=== PATIENT | male | born 1940 | race Caucasian/White ===

== ENCOUNTER 2020-04-01 13:50 | Inpatient (IN) | payer MEDICARE, BC ==
[~2020-04-01] VITALS: Ht 180.3 cm; Wt 103.0 kg
--- NOTE | 2020-04-01 14:16 | NUR ---
Pt's Son NEVAEH Gandhi phoned and left his cell phone where he can be reached - [phone]. Scar also reports the patient has a history of Cognitive Impairment and may have difficulty understanding or verbalizing everything.
[2020-04-01 14:44] LABS: BASOPHILS # (AUTO) 0.1 X10'3 (0-0.2); BASOPHILS % (AUTO) 0.9 % (0-1); EOSINOPHILS # (AUTO) 0.2 X10'3 (0-0.9); EOSINOPHILS % (AUTO) 2.8 % (0-6); LYMPHOCYTES # (AUTO) 0.9 X10'3 (1.1-4.8); LYMPHOCYTES % (AUTO) 13.8 % (21-51); MEAN CORPUSCULAR HEMOGLOBIN 31.7 PG (27.0-31.0); MEAN CORPUSCULAR HGB CONC 33.3 g/dL (33.0-36.5); MEAN CORPUSCULAR VOLUME 95.2 FL (78-98); MEAN PLATELET VOLUME 7.5 FL (7.4-10.4); MONOCYTES # (AUTO) 0.9 X10'3 (0-0.9); MONOCYTES % (AUTO) 15.1 % (2-12); NEUTROPHILS # (AUTO) 4.2 X10'3 (1.8-7.7); NEUTROPHILS % (AUTO) 67.4 % (42-75); PLATELET COUNT 170 X10'3 (140-440); RED BLOOD COUNT 3.47 X10'6 (4.70-6.10); RED CELL DISTRIBUTION WIDTH 16.3 % (11.5-14.5); WHITE BLOOD COUNT 6.2 X10'3 (4.5-11.0)
[2020-04-01 15:06] LABS: ALANINE AMINOTRANSFERASE 20 U/L (12-78); ALBUMIN 3.3 G/DL (3.4-5.0); ALBUMIN/GLOBULIN RATIO 0.8 (1.1-1.5); ALKALINE PHOSPHATASE 74 IU/L (46-116); ANION GAP 6 (8-16); ASPARTATE AMINO TRANSFERASE 17 U/L (10-37); BILIRUBIN,TOTAL 0.6 MG/DL (0.1-1.0); BLOOD UREA NITROGEN 55 MG/DL (7-18); BUN/CREATININE RATIO 20.7 (5.4-32.0); CALCIUM 8.5 MG/DL (8.5-10.1); CHLORIDE 104 MMOL/L (99-107); CREATININE 2.66 MG/DL (0.60-1.10); GLUCOSE 119 MG/DL (70-104); POTASSIUM 4.2 MMOL/L (3.5-5.1); SODIUM 140 MMOL/L (135-145); TOTAL CARBON DIOXIDE 29.8 MMOL/L (24-32); TOTAL PROTEIN 7.6 G/DL (6.4-8.2); eGFR 23 ML/MIN
[2020-04-01] MEDS ORDERED: furosemide 10 MG/1 ML 10ml inj IV ONE (16:15)
[2020-04-01] MEDS ORDERED: methylPREDNISolone sod succ 125mg/2ml vial IV ONE (17:00)
[2020-04-01 17:02] LABS: PARTIAL THROMBOPLASTIN TIME 28 SECONDS (22-32)
[2020-04-01] MEDS ORDERED: magnesium Cl slow-release 64mg tablet PO PRN (17:10)
[2020-04-01] MEDS ORDERED: ipratropium/albuterol 3ml nebule NEB PRN (17:10)
[2020-04-01] MEDS ORDERED: bisacodyl 10mg suppository rectal RC PRN (17:10)
[2020-04-01] MEDS ORDERED: magnesium hydroxide 30ml (MOM) UD suspension PO PRN (17:10)
[2020-04-01] MEDS ORDERED: ondansetron/PF 4mg/2ml inj IV PRN (17:10)
[2020-04-01] MEDS ORDERED: HYDROcodone/acetaminophen 10/325mg tab PO PRN (17:10)
[2020-04-01] MEDS ORDERED: magnesium 4gm in 100ml NS 100 ML IV PRN (17:10)
[2020-04-01] MEDS ORDERED: metoclopramide 5 mg/ml inj IV PRN (17:10)
[2020-04-01] MEDS ORDERED: HYDROcodone/acetaminophen 5mg/325mg tablet PO PRN (17:10)
[2020-04-01] MEDS ORDERED: magnesium 2GM in 50ml NS 50 ML IV PRN (17:10)
[2020-04-01] MEDS ORDERED: acetaminophen 325mg tablet PO PRN ×2 (17:10)
[2020-04-01] MEDS ORDERED: potassium Cl 20 mEq SR tablet PO PRN ×2 (17:10)
[2020-04-01] MEDS ORDERED: potassium CL 10mEq/100ml bag 100 ML IV PRN ×2 (17:10)
[2020-04-01] MEDS ORDERED: mag hydrox/Alum hydrox/simeth 30ml oral suspension PO PRN (17:10)
[2020-04-01] MEDS ORDERED: CARV3.122 PO (17:22)
[2020-04-01] MEDS ORDERED: OMEG-161 PO (17:22)
[2020-04-01] MEDS ORDERED: FURO20TA4 PO (17:22)
[2020-04-01] MEDS ORDERED: CHOL100046 PO (17:22)
[2020-04-01] MEDS ORDERED: VITA400C19 PO (17:22)
[2020-04-01] MEDS ORDERED: ASPI-611 PO (17:22)
[2020-04-01] MEDS ORDERED: GABA300C PO (17:22)
[2020-04-01] MEDS ORDERED: TRAM50TA2 PO (17:22)
[2020-04-01] MEDS ORDERED: SITA25TA3 PO (17:22)
[2020-04-01] MEDS ORDERED: FERGLU300T PO (17:22)
[2020-04-01] MEDS ORDERED: IPRA3AMP31 NEB (17:22)
[2020-04-01] MEDS ORDERED: ATOR40TA72 PO (17:22)
[2020-04-01] MEDS ORDERED: MULT-1074 PO (17:22)
[2020-04-01] MEDS ORDERED: CALC0.2535 PO (17:22)
[2020-04-01] MEDS ORDERED: FLO0.4C PO (17:22)
[2020-04-01] MEDS ORDERED: WARF2.5T82 PO (17:22)
[2020-04-01] MEDS ORDERED: ASCO-134 PO (17:22)
[2020-04-01] MEDS ORDERED: ACET-890 PO (17:22)
[2020-04-01] MEDS ORDERED: CLON0.5T4 PO (17:22)
[2020-04-01] MEDS ORDERED: INSU100V9 SQ (17:22)
[2020-04-01] MEDS ORDERED: XAL0.005OS EACHEYE (17:22)
[2020-04-01] MEDS ORDERED: clonazePAM 0.5mg tablet PO PRN (17:35)
[2020-04-01] MEDS ORDERED: traMADol 50MG tablet PO PRN (17:35)
[2020-04-01] MEDS: CefTRIAXone/D5W-Rocephin 1gm 50 ML IV SCH (18:32)
--- NOTE | 2020-04-01 18:34 | NUR ---
call placed to [facility] regarding approval for covid swab - she will recontact the lab
[2020-04-01] MEDS: predniSONE 20 mg tablet PO SCH (18:43)
[2020-04-01 19:01] LABS: HEMOGLOBIN A1C 6.6 % (4.5-6.2)
[2020-04-01 19:17] LABS: PHOSPHORUS 4.6 MG/DL (2.3-4.5)
[2020-04-01 19:40] VITALS: BP 139/80
[2020-04-01] MEDS: ipratropium/albuterol 3ml nebule NEB SCH ×2 (19:56→23:28)
[2020-04-01] MEDS: K and/or MAG REPLACEMENT MC SCH (20:00)
[2020-04-01] MEDS: insulin glargine (Lantus) pen - multi-dose SQ SCH (21:00)
[2020-04-01] MEDS: latanoprost 0.005% 2.5ml ophthalmic drops EACHEYE SCH (21:00)
[2020-04-01] MEDS ORDERED: warfarin 3mg tablet PO ONE (21:00)
[2020-04-01] MEDS: furosemide 40mg/4ml inj IV SCH (21:14)
[2020-04-01] MEDS: methylPREDNISolone sod succ 125mg/2ml vial IV SCH (21:15)
[2020-04-01] MEDS: gabapentin 300mg capsule PO SCH (21:19)
[2020-04-01] MEDS: carVEDilol 3.125mg tablet PO SCH (21:19)
[2020-04-01] MEDS: temazepam 15mg capsule PO PRN (21:30)
[2020-04-01 23:31] VITALS: BP 134/68
[2020-04-02] MEDS: methylPREDNISolone sod succ 125mg/2ml vial IV SCH ×3 (01:39→19:28)
[2020-04-02 02:44] VITALS: BP 106/64
[2020-04-02 03:21] LABS: BASOPHILS % (AUTO) 0.2 % (0-1); EOSINOPHILS % (AUTO) 0 % (0-6); HEMATOCRIT 33.8 % (42.0-52.0); HEMOGLOBIN 11.1 g/dl (14.0-17.9); LYMPHOCYTES # (AUTO) 0.2 X10'3 (1.1-4.8); LYMPHOCYTES % (AUTO) 3.6 % (21-51); MEAN CORPUSCULAR HEMOGLOBIN 30.9 PG (27.0-31.0); MEAN CORPUSCULAR HGB CONC 32.7 g/dL (33.0-36.5); MEAN CORPUSCULAR VOLUME 94.5 FL (78-98); MEAN PLATELET VOLUME 7.9 FL (7.4-10.4); MONOCYTES % (AUTO) 0.9 % (2-12); NEUTROPHILS # (AUTO) 4.2 X10'3 (1.8-7.7); NEUTROPHILS % (AUTO) 95.3 % (42-75); PLATELET COUNT 157 X10'3 (140-440); RED BLOOD COUNT 3.58 X10'6 (4.70-6.10); RED CELL DISTRIBUTION WIDTH 16.5 % (11.5-14.5); WHITE BLOOD COUNT 4.4 X10'3 (4.5-11.0)
[2020-04-02 03:39] LABS: ALANINE AMINOTRANSFERASE 20 U/L (12-78); ALBUMIN 3.1 G/DL (3.4-5.0); ALBUMIN/GLOBULIN RATIO 0.7 (1.1-1.5); ALKALINE PHOSPHATASE 69 IU/L (46-116); ANION GAP 8 (8-16); ASPARTATE AMINO TRANSFERASE 14 U/L (10-37); BILIRUBIN,TOTAL 0.6 MG/DL (0.1-1.0); BLOOD UREA NITROGEN 56 MG/DL (7-18); BUN/CREATININE RATIO 21.1 (5.4-32.0); CALCIUM 8.3 MG/DL (8.5-10.1); CHLORIDE 101 MMOL/L (99-107); CREATININE 2.65 MG/DL (0.60-1.10); GLUCOSE 189 MG/DL (70-104); SODIUM 137 MMOL/L (135-145); TOTAL CARBON DIOXIDE 27.6 MMOL/L (24-32); TOTAL PROTEIN 7.5 G/DL (6.4-8.2); eGFR 23 ML/MIN
[2020-04-02 03:41] LABS: CHOL/HDL RATIO 1.8 (0.00-4.99); CHOLESTEROL 79 MG/DL (0-200); HDL CHOLESTEROL 43 MG/DL (35-60); LDL CHOLESTEROL 34 MG/DL (50-100); MAGNESIUM 2.3 MG/DL (1.5-2.4); TRIGLYCERIDES 19 MG/DL (20-135)
--- NOTE | 2020-04-02 06:12 | NUR ---
Problems reprioritized. Patient report given, questions answered & plan of care reviewed with CLARE Braga.
--- NOTE | 2020-04-02 06:19 | NUR ---
Patient in room PCU 3015. I have received report from CLARE Nicholson and had the opportunity to ask questions and assume patient care.
[2020-04-02 07:00] VITALS: BP 140/76
[2020-04-02] MEDS ORDERED: enoxaparin 40mg/0.4ml syringe SUBCUT SCH (08:00)
[2020-04-02] MEDS: CefTRIAXone/D5W-Rocephin 1gm 50 ML IV SCH (08:00)
[2020-04-02] MEDS: linagliptin 5mg tablet PO SCH (08:00)
[2020-04-02] MEDS: predniSONE 20 mg tablet PO SCH (08:00)
[2020-04-02] MEDS: tamsulosin 0.4mg capsule PO SCH (08:00)
[2020-04-02] MEDS: K and/or MAG REPLACEMENT MC SCH ×2 (08:00→20:00)
[2020-04-02] MEDS: carVEDilol 3.125mg tablet PO SCH ×2 (08:00→19:28)
[2020-04-02] MEDS: furosemide 40mg/4ml inj IV SCH ×2 (08:00→19:28)
[2020-04-02] MEDS: aspirin 81mg tablet.DR PO SCH (08:00)
[2020-04-02] MEDS: ipratropium/albuterol 3ml nebule NEB SCH ×5 (08:18→23:25)
[2020-04-02 11:00] VITALS: BP 114/35
--- NOTE | 2020-04-02 13:07 | NUR ---
PAGER ID: [phone] MESSAGE: [id number]: Melvin Smith: Pt does not have humalog ordered, pt has met to give. -eber [phone]
[2020-04-02] MEDS: insulin Lispro (HumaLOG) vial - multi-dose SQ SCH ×2 (13:40→19:30)
[2020-04-02 15:00] VITALS: BP 146/59
[2020-04-02 18:00] VITALS: BP 129/54
--- NOTE | 2020-04-02 18:10 | NUR ---
Problems reprioritized. Patient report given, questions answered & plan of care reviewed with CLARE Rivera.
--- NOTE | 2020-04-02 18:15 | NUR ---
Patient in room PCU 3015. I have received report from Maria Luz SPARKS and had the opportunity to ask questions and assume patient care.
[2020-04-02] MEDS ORDERED: warfarin 3mg tablet PO ONE (21:00)
[2020-04-02] MEDS: latanoprost 0.005% 2.5ml ophthalmic drops EACHEYE SCH (21:13)
[2020-04-02] MEDS: insulin glargine (Lantus) pen - multi-dose SQ SCH (21:21)
[2020-04-02] MEDS: gabapentin 300mg capsule PO SCH (21:22)
[2020-04-02 22:00] VITALS: BP 141/43
[2020-04-03] MEDS: temazepam 15mg capsule PO PRN (01:06)
[2020-04-03 02:00] VITALS: BP 116/58
[2020-04-03] MEDS: methylPREDNISolone sod succ 125mg/2ml vial IV SCH ×2 (02:08→07:32)
--- NOTE | 2020-04-03 04:56 | NUR ---
PATIENT IS REFUSING TELE MONITORING. EDUCATED PATIENT ON THE MONITOR AND CONTINUES TO REFUSE. PT IS TO BE DC IN DURING THE DAY. PATIENT VS STABLE. NO ACUTE DISTRESS. WILL CONTINUE TO MONITOR.
[2020-04-03 05:48] LABS: BASOPHILS % (AUTO) 0.1 % (0-1); EOSINOPHILS % (AUTO) 0 % (0-6); HEMATOCRIT 30.2 % (42.0-52.0); HEMOGLOBIN 10.1 g/dl (14.0-17.9); LYMPHOCYTES # (AUTO) 0.3 X10'3 (1.1-4.8); LYMPHOCYTES % (AUTO) 2.4 % (21-51); MEAN CORPUSCULAR HGB CONC 33.4 g/dL (33.0-36.5); MEAN CORPUSCULAR VOLUME 92.9 FL (78-98); MONOCYTES # (AUTO) 0.3 X10'3 (0-0.9); MONOCYTES % (AUTO) 2.4 % (2-12); NEUTROPHILS # (AUTO) 12.7 X10'3 (1.8-7.7); NEUTROPHILS % (AUTO) 95.1 % (42-75); PLATELET COUNT 160 X10'3 (140-440); RED BLOOD COUNT 3.25 X10'6 (4.70-6.10); RED CELL DISTRIBUTION WIDTH 16.3 % (11.5-14.5); WHITE BLOOD COUNT 13.3 X10'3 (4.5-11.0)
--- NOTE | 2020-04-03 06:16 | NUR ---
Problems reprioritized. Patient report given, questions answered & plan of care reviewed with Madie SPARKS.
[2020-04-03 06:25] LABS: ALANINE AMINOTRANSFERASE 17 U/L (12-78); ALBUMIN/GLOBULIN RATIO 0.8 (1.1-1.5); ALKALINE PHOSPHATASE 57 IU/L (46-116); ANION GAP 12 (8-16); ASPARTATE AMINO TRANSFERASE 20 U/L (10-37); BILIRUBIN,TOTAL 0.4 MG/DL (0.1-1.0); BLOOD UREA NITROGEN 77 MG/DL (7-18); BUN/CREATININE RATIO 25.4 (5.4-32.0); CALCIUM 8.4 MG/DL (8.5-10.1); CHLORIDE 99 MMOL/L (99-107); CREATININE 3.03 MG/DL (0.60-1.10); GLUCOSE 174 MG/DL (70-104); MAGNESIUM 2.2 MG/DL (1.5-2.4); SODIUM 135 MMOL/L (135-145); TOTAL CARBON DIOXIDE 24.5 MMOL/L (24-32); TOTAL PROTEIN 6.8 G/DL (6.4-8.2); eGFR 20 ML/MIN
--- NOTE | 2020-04-03 06:41 | NUR ---
Patient in room PCU 3015. I have received report from Miguel SPARKS and had the opportunity to ask questions and assume patient care.
[2020-04-03 07:00] VITALS: BP 113/54
[2020-04-03] MEDS: ipratropium/albuterol 3ml nebule NEB SCH ×2 (07:04→11:20)
[2020-04-03] MEDS: linagliptin 5mg tablet PO SCH (07:32)
[2020-04-03] MEDS: aspirin 81mg tablet.DR PO SCH (07:32)
[2020-04-03] MEDS: furosemide 40mg/4ml inj IV SCH (07:32)
[2020-04-03] MEDS: carVEDilol 3.125mg tablet PO SCH (07:33)
[2020-04-03] MEDS: CefTRIAXone/D5W-Rocephin 1gm 50 ML IV SCH (07:33)
[2020-04-03] MEDS: tamsulosin 0.4mg capsule PO SCH (07:33)
[2020-04-03] MEDS: K and/or MAG REPLACEMENT MC SCH (08:00)
[2020-04-03] MEDS: predniSONE 20 mg tablet PO SCH (08:00)
[2020-04-03] MEDS: insulin Lispro (HumaLOG) vial - multi-dose SQ SCH (08:55)
[2020-04-03] MEDS ORDERED: CEPH500C5 PO (10:00)
--- NOTE | 2020-04-03 10:26 | NUR ---
All discharge instructions reviewed over the phone with patients Son "Scar." He stated he plans to set appointment with primary and storage architect tomorrow morning. Informed him that the patient has a new medication Keflex that needs to be picked up from pharmacy. Scar verbalized understanding and stated him home health will F/U on wound care.
[2020-04-03 11:00] VITALS: BP 111/56
--- NOTE | 2020-04-03 12:41 | NUR ---
Tele removed, PIV removed. Educated patient and Son Scar regarding discharge instructions and new medication as well as wound care. HH to follow up with patient in assisted living facility. Ambulated shortly with without complaints of dyspnea. Pt. left in stable condition.
== END 2020-04-03 12:30 | disposition home health service (06) | DRG 291 ==
LOC: ER 13:51 → ED HOLD 17:06 → PCU 3S 19:47
PROVIDERS: ADMIT Family Medicine; ATTEND Family Medicine
DX: I13.0 Hypertensive heart and chronic kidney disease with heart failure and stage 1 through stage 4 chronic kidney disease, or unspecified chronic kidney disease (principal); I50.23 Acute on chronic systolic (congestive) heart failure; N17.0 Acute kidney failure with tubular necrosis; L03.115 Cellulitis of right lower limb; L03.116 Cellulitis of left lower limb; D63.8 Anemia in other chronic diseases classified elsewhere; E11.22 Type 2 diabetes mellitus with diabetic chronic kidney disease; E55.9 Vitamin D deficiency, unspecified; E78.5 Hyperlipidemia, unspecified; F02.80 Dementia in other diseases classified elsewhere, unspecified severity, without behavioral disturbance, psychotic disturbance, mood disturbance, and anxiety; G30.9 Alzheimer's disease, unspecified; I25.10 Atherosclerotic heart disease of native coronary artery without angina pectoris; I48.91 Unspecified atrial fibrillation; J44.9 Chronic obstructive pulmonary disease, unspecified; N18.9 Chronic kidney disease, unspecified; N40.0 Benign prostatic hyperplasia without lower urinary tract symptoms; Z66 Do not resuscitate; Z79.01 Long term (current) use of anticoagulants; Z87.891 Personal history of nicotine dependence; Z95.810 Presence of automatic (implantable) cardiac defibrillator; Z79.82 Long term (current) use of aspirin
CPT/HCPCS: 36415; 71045; 76700; 80053; 80061; 82140; 82948; 83036; 83605; 83735; 83880; 84100; 84443; 84484; 85025; 85610; 85730; 87040; 87081; 87635; 93005; 93306; 94640; 94760; 97116; 97161; 97530; 99285; G0378; J0696; J1815; J1940; J2930; J7512